=== PATIENT | female | born 1935 | race Caucasian/White ===

== ENCOUNTER 2017-10-11 11:21 | Emergency (ER) | payer OTHER, BC, MEDICARE ==
--- NOTE | 2017-10-11 11:28 | PDOC ---
History of Present Illness <Emiliano Vo - Last Filed: 10/11/17 17:35> - General History Source: Patient, Family Exam Limitations: No Limitations - History of Present Illness Initial Comments: 10/11/17 12:27 The patient is an 81 year old female with a significant PMH of HTN, hypothyroidism, and murmur who presents to the emergency department via EMS s/p loss of consciousness and fall earlier today. The patient reports brushing her teeth earlier today and suddenly feeling dizzy, after which she fell between the sink and the wall. She reports sustaining a left elbow abrasion but denies hitting her head. She reports being unconscious for a few seconds, during which time she experienced bowel incontinence and vomited. The patient notes that she ate breakfast this morning, after which she took her prescribed Meclizine. She notes that her son found her on the bathroom floor shortly after the fall, prompting their visit The patients daughter notes that the patient has had 2 or 3 previous episodes of dizziness and falling in the past few months. She has seen a Neurologist in the past for this complaint. The patient denies chest pain, shortness of breath, headache. Denies fever, chills, nausea, diarrhea and constipation. Denies dysuria, frequency, urgency and hematuria. Allergies: NKA Past surgical history: None reported. Social history: No reported cigarette, alcohol, or drug use. PCP: Dr. Moore <Juan J Javed - Last Filed: 10/11/17 17:38> - General Stated Complaint: SYNCOPE Time Seen by Provider: 10/11/17 11:27 Past History <Emiliano Vo - Last Filed: 10/11/17 17:35> <Juan J Javed - Last Filed: 10/11/17 17:38> - Past Medical History Allergies/Adverse Reactions: Allergies Allergy/AdvReac Type Severity Reaction Status Date / Time No Known Allergies Allergy Verified 10/11/17 12:13 Home Medications: Ambulatory Orders Amlodipine Besylate 10 mg PO DAILY 10/11/17 Aspirin 81 mg PO DAILY 10/11/17 Brimonidine Tartrate/Timolol [Combigan Eye Drops] 1 drop IO BID 10/11/17 Levothyroxine Sodium [Levo-T] 88 mcg PO DAILY 10/11/17 Losartan Potassium 25 mg PO DAILY 12/24/17 Meclizine HCl 12.5 mg PO DAILY PRN MDD 1 10/11/17 Pravastatin Sodium 20 mg PO DAILY 10/11/17 Travoprost [Travatan Z] 1 drop IO HS 10/11/17 Review of Systems - Review of Systems Able to Perform ROS?: Yes Comments:: 10/11/17 12:27 GENERAL/CONSTITUTIONAL: No fever or chills. No weakness. HEAD, EYES, EARS, NOSE AND THROAT: No change in vision. No ear pain or discharge. No sore throat. CARDIOVASCULAR: No chest pain or shortness of breath. RESPIRATORY: No cough, wheezing, or hemoptysis. GASTROINTESTINAL: (+) Bowel incontinence & vomiting secondary to LOC. No diarrhea or constipation. GENITOURINARY: No dysuria, frequency, or change in urination. MUSCULOSKELETAL: No joint or muscle swelling or pain. No neck or back pain. SKIN: (+) Left elbow abrasion. NEUROLOGIC: (+) Loss of consciousness. No headache or change in strength/ sensation. ENDOCRINE: No increased thirst. No abnormal weight change. HEMATOLOGIC/LYMPHATIC: No anemia, easy bleeding, or history of blood clots. ALLERGIC/IMMUNOLOGIC: No hives or skin allergy. <Juan J Javed - Last Filed: 10/11/17 17:38> *Physical Exam - Physical Exam Comments: 10/11/17 12:28 GENERAL: Awake, alert, and fully oriented, in no acute distress HEAD: No signs of trauma EYES: PERRLA, EOMI, sclera anicteric, conjunctiva clear ENT: Auricles normal inspection, hearing grossly normal, nares patent, oropharynx clear without exudates. Moist mucosa NECK: Normal ROM, supple, no lymphadenopathy, JVD, or masses LUNGS: Breath sounds equal, clear to auscultation bilaterally. No wheezes, and no crackles HEART: (+) Bradycardic. Regular rhythm, normal S1 and S2, no murmurs, rubs or gallops ABDOMEN: Soft, nontender, normoactive bowel sounds. No guarding, no rebound. No masses EXTREMITIES: (+) Left elbow abrasion. Normal range of motion, no edema. No clubbing or cyanosis. No cords, erythema, or tenderness NEUROLOGICAL: Cranial nerves II through XII grossly intact. Normal speech. SKIN: Warm, Dry, normal turgor, no rashes or lesions noted. <Juan J Javed - Last Filed: 10/11/17 17:38> Heart Score/ECG Review #1 10/11/17 12:11 Vent rate 67 bpm Normal sinus rhythm Nonspecific ST abnormality Abnormal ECG <TelloJuan J - Last Filed: 10/11/17 17:38> ED Treatment Course - LABORATORY CBC & Chemistry Diagram: 10/11/17 12:00 10/11/17 12:00 <Emiliano Vo - Last Filed: 10/11/17 17:35> - LABORATORY CBC & Chemistry Diagram: 10/11/17 12:00 10/11/17 12:00 <Juan J Javed - Last Filed: 10/11/17 17:38> *DC/Admit/Observation/Transfer - Discharge Dispostion Admit: No - Attestations Physician Attestion: 10/11/17 11:27 I, Dr. Emiliano Vo, attest that this document has been prepared under my direction and personally reviewed by me in its entirety. I further attest, that it accurately reflects all work, treatment, procedures and medical decision -making performed by me. <Emiliano Vo - Last Filed: 10/11/17 17:35> - Attestations Scribe Attestion: 10/11/17 12:28 Documentation prepared by Juan J Javed, acting as medical education specialist for Emiliano Vo DO. <Juan J Javed - Last Filed: 10/11/17 17:38> Diagnosis at time of Disposition: Syncope Qualifiers: Syncope type: vasovagal syncope Qualified Code(s): R55 - Syncope and collapse - Discharge Dispostion Disposition: HOME Condition at time of disposition: Improved - Referrals Referrals: Francisco Moore MD [Primary Care Provider] - - Patient Instructions Printed Discharge Instructions: DI for Syncope in Adults (Fainting) Additional Instructions: Mrs Linares- Pat this happened to you today. All of your tests are good. Please follow up with your doctor. Return to us if worse or new symptoms. Mariangel Churchill- Dr. Emiliano Vo
[2017-10-11] MEDS ORDERED: DIPHTH,PERTUSS(ACELL),TET 0.5 ML DISP.SYRIN IM ONE (11:38)
[2017-10-11 12:14] LABS: BASO % 0.7 % (0-2.0); EOS # 0.2 # (0-4.5); EOS % 2.2 % (0-4.5); LYMPH # 0.8 (8-40); MCH 32.9 pg (25.7-33.7); MCHC 32.9 g/dl (32.0-36.0); MEAN CELL VOLUME 99.9 fl (80-96); MEAN PLT VOLUME 8.7 fl (7.5-11.1); MONO # 0.5 # (3.8-10.2); NEUT # 5.9 # (42.8-82.8); PLATELET COUNT 201 K/MM3 (134-434); RDW 13.3 % (11.6-15.6); WHITE BLOOD COUNT 7.4 K/mm3 (4.0-10.0)
[2017-10-11 12:30] LABS: INR 0.94 (0.82-1.09); PROTHROMBIN TIME (PATIENT) 10.6 SEC (9.98-11.88)
[2017-10-11 12:46] VITALS: BMI 24.0
[2017-10-11 12:53] LABS: ALBUMIN 3.7 g/dl (3.4-5.0); ANION GAP 6 (8-16); BILIRUBIN,TOTAL 0.4 mg/dL (0.2-1.0); CALCIUM 9.1 mg/dL (8.5-10.1); CO2 29 mmol/L (21-32); GLUCOSE,RANDOM 136 mg/dL (74-106); SGOT/AST 23 U/L (15-37); SGPT/ALT 22 U/L (12-78); TOT PROT 7.2 g/dl (6.4-8.2)
[2017-10-11 12:55] LABS: ALK PHOS 72 U/L (45-117); CPK 88 IU/L (26-192); TROPONIN I < 0.02 ng/ml (0.00-0.05)
--- NOTE | 2017-10-11 16:56 | EKG ---
Test Reason : Blood Pressure : / mmHG Vent. Rate : 067 BPM Atrial Rate : 067 BPM P-R Int : 178 ms QRS Dur : 088 ms QT Int : 416 ms P-R-T Axes : 064 020 055 degrees QTc Int : 439 ms NORMAL SINUS RHYTHM NONSPECIFIC ST ABNORMALITY ABNORMAL ECG NO PREVIOUS ECGS AVAILABLE Confirmed by MIGUEL LEDEZMA MD ([id number]) on 10/11/2017 4:56:37 PM Referred By: Confirmed By:MIGUEL LEDEZMA MD
[2017-10-11 17:15] LABS: URINE APPEARANCE SLCLOUDY; URINE BILIRUBIN NEGATIVE (NEGATIVE); URINE BLOOD NEGATIVE (NEGATIVE); URINE COLOR YELLOW; URINE GLUCOSE (UA) NEGATIVE (NEGATIVE); URINE KETONE NEGATIVE (NEGATIVE); URINE NITRITE NEGATIVE (NEGATIVE); URINE PROTEIN NEGATIVE (NEGATIVE); URINE UROBILINOGEN NEGATIVE mg/dL (0.2-1.0)
[2017-10-11 17:20] LABS: URINE LEUK ESTERASE 1+ (NEGATIVE)
[2017-10-11 17:23] LABS: URINE BACTERIA RARE /hpf (NONE SEEN); URINE HYALINE CAST 2 /lpf; URINE MUCUS RARE; URINE RBC <1 /hpf (0-3); URINE WBC 6 /hpf (3-5)
[2017-10-11 18:01] VITALS: BP 147/74; PULSE 86; TEMP 98.2
[2017-10-11 20:09] LABS: URINE LEUK ESTERASE 1+ (NEGATIVE)
== END 2017-10-11 17:50 | disposition home or self-care (01) ==
LOC: JER 11:21
DX: R55 Syncope and collapse (principal); S50.312A Abrasion of left elbow, initial encounter; W19.XXXA Unspecified fall, initial encounter; Y93.89 Activity, other specified; Y92.031 Bathroom in apartment as the place of occurrence of the external cause; Y99.8 Other external cause status; I10 Essential (primary) hypertension; E03.9 Hypothyroidism, unspecified; R01.1 Cardiac murmur, unspecified
CPT/HCPCS: 36415; 70450-TC; 71010-TC; 80053; 81003; 81015; 82550; 83880; 84484; 85025; 85610; 87086; 90715; 93005; 93010; 99283-25

== ENCOUNTER 2019-03-01 09:14 | Inpatient (IN) | payer OTHER, BC ==
[2019-03-01] MEDS ORDERED: SODIUM CHLORIDE 0.9% 500 ML INFUS.BAG IV ONE (10:15)
--- NOTE | 2019-03-01 10:30 | PDOC ---
History of Present Illness - General Chief Complaint: Pain, Acute Stated Complaint: CONSTIPATION Time Seen by Provider: 03/01/19 10:07 - History of Present Illness Initial Comments: Elnei Linares is an 83yo woman with a PMH of HTN, HLD, hypothyroidism, multiple abdominal surgeries including hernia s/p repair x2 ("many years ago") and hysterectomy who presents with 3 days of constipation and nausea. She states that she generally has a bowel movement every morning; her stool is soft and she does not need to strain. Since Thursday, she has been unable to have a bowel movement at all, and she denies any flatus. She also reports significant abdominal bloating, burping, nausea, and vomiting. She has been unable to eat much due to the nausea. Ms Linares has been taking docusate and Gas-X for her symptoms without any improvement. She reports that her abdomen is much larger than normal. She also reports that there is a bulge on the left side of her abdomen that she states is due to needing to have a bowel movement. She indicates that there is always a bulge there that resolves after she has a bowel movement. She denies any change in diet or history of constipation. Past History - Past Medical History Allergies/Adverse Reactions: Allergies Allergy/AdvReac Type Severity Reaction Status Date / Time No Known Allergies Allergy Verified 03/01/19 09:17 Home Medications: Ambulatory Orders Amlodipine Besylate 10 mg PO DAILY 10/11/17 Aspirin 81 mg PO DAILY 10/11/17 Brimonidine Tartrate/Timolol [Combigan Eye Drops] 1 drop OU BID 10/11/17 Levothyroxine Sodium [Levo-T] 75 mcg PO DAILY 10/11/17 Losartan Potassium 25 mg PO DAILY 10/11/17 Pravastatin Sodium 20 mg PO DAILY 10/11/17 Travoprost [Travatan Z] 1 drop OU HS 10/11/17 Multivit-Min/Iron/Folic/Lutein [Centrum Silver Women Tablet] 1 each PO DAILY [place]-3 Fatty Acids/Fish Oil [Fish Oil 1,000 mg Capsule] 1 each PO DAILY COPD: No HTN: Yes Hypercholesterolemia: Yes - Suicide/Smoking/Psychosocial Hx Smoking History: Unknown if ever smoked Review of Systems - Review of Systems Comments:: General: No fevers, no chills, no weight or appetite change, no malaise HEENT: No changes in vision, no changes in hearing, no congestion, no sore throat CV: No chest pain, no palpitations, + LE edema Pulm: No SOB, no cough, no wheezing GI: No nausea or vomiting, no change in bowel habits, no melena : No frequency, no urgency, no dysuria Musc: No back pain, no joint swelling, no recent injury. +LLE ankle pain Skin: No rash, no lesions, no erythema Endo: No excessive thirst, no heat/cold intolerance Heme: No unusual bruising or bleeding, no swollen glands Neuro: No syncope, no numbness/tingling, no focal weakness Vasc: No claudication Psych: No recent change in mood, no SI or HI *Physical Exam - Vital Signs Last Vital Signs Temp Pulse Resp BP Pulse Ox 98.4 F 81 20 117/61 99 03/01/19 09:14 03/01/19 09:14 03/01/19 09:14 03/01/19 09:14 03/01/19 09:14 - Physical Exam Comments: General: Comfortable, no acute distress HEENT: PERRL, EOMI, MMM, voice normal, normal neck ROM, no LAD Cards: RRR, no murmur appreciated Pulm: Comfortable on room air, clear to auscultation bilaterally Abd: Soft, nondistended. Visible and palpable left periumbilical hernia w/o overlying erythema or warmth. Soft but not reducible Ext: Atraumatic. No LE edema. ROM intact. Vasc: Extremities WWP. Skin: Normal color, no rashes or lesions Neuro: A&Ox3, CN grossly intact, normal speech, motor/sensory grossly intact and symmetric Psych: Mood appropriate to situation ED Treatment Course - LABORATORY CBC & Chemistry Diagram: 03/01/19 11:00 03/01/19 11:00 - RADIOLOGY Radiology Studies Ordered: Category Date Time Status ABDOMEN & PELVIS CT WITH CONTR [CT] Stat CT Scan 03/01/19 10:13 Ordered CHEST X-RAY PORTABLE* [RAD] Stat Radiology 03/01/19 10:13 Ordered Medical Decision Making - Medical Decision Making 03/01/19 10:29 Eleni Linares is an 83yo woman with a PMH of HTN, HLD, hypothyroidism, multiple abdominal surgeries including hernia s/p repair x2 ("many years ago") and hysterectomy who presents with 3 days of constipation, obstipation, nausea/ vomiting, bloating, and visible periumbilical hernia concerning for small bowel obstruction. - Visible and palpable left periumbilical hernia that cannot be reduced on exam. - Concern for SOB given hernia, new acute onset constipation, report of obstipation, nausea and vomiting w/ PO intake - CBC, CMP, mag, phos, CXR, T&S, coags for evaluation - CT abd/pelvis with PO and IV contrast 03/01/19 13:02 - Labs reviewed. Hyponatremic to 124. No other concerning abnormalities - Working on PO contrast, plan for CT at 14:00 03/01/19 15:05 - Bedside US completed by Lazaro Li and Mona. To-and-fro movement of bowel contents w / bowel wall edema indicating SBO. Transition point could not be located. - Pt taken to CT. Unable to complete oral contrast due to nausea and vomiting - [facility] paged for evaluation 03/01/19 16:03 - CT completed, reviewed in ED. Dilated bowel, no clear transition point. Umbilical hernia containing bowel noted. Radiology read pending - Plan to place NGT when returned to ED from radiology - 2nd call to surgery 03/01/19 16:55 - Spoke to Dr Lomeli. Agrees with plan for NGT, will come to evaluate. Recommends checking lactate - Attempted to place NGT. Not well tolerated. Will give 2mg versed for sedation prior to additional attempt 03/01/19 17:20 - Radiology report available for CT. Confirms SBO secondary to umbilical hernia. 03/01/19 17:55 - 2nd attempt to place NGT. Tube in place, return of gastric contents. Pt immediately removed NGT prior to the tube being taped in place. She states that it is "too uncomfortable' and that she "can't stand it." She is currently refusing replacement of NGT despite lengthy discussion regarding reasons for bowel decompression and relief of nausea/vomiting. Lazaro Mccarthy and Yani updated. - Seen by Dr Mccarthy. Will admit. To be seen by Dr Lomeli this evening. Discussed with Dr Anderson. Yaritza Godoy PGY1 *DC/Admit/Observation/Transfer Diagnosis at time of Disposition: Small bowel obstruction, Periumbilical hernia - Discharge Dispostion Decision to Admit order: Yes - Referrals Referrals: Francisco Moore MD [Primary Care Provider] - - Patient Instructions - Post Discharge Activity
--- NOTE | 2019-03-01 11:06 | PDOC ---
Documentation entered by Viridiana Garcia SCRIBE, acting as scribe for Konrad Anderson MD. Konrad Anderson MD: This documentation has been prepared by the Radha miranda Victoria, SCRIBE, under my direction and personally reviewed by me in its entirety. I confirm that the documentation accurately reflects all work, treatment, procedures, and medical decision making performed by me. Attending Attestation - Resident Resident Name: WaltYaritza - ED Attending Attestation I have performed the following: I have examined & evaluated the patient, The case was reviewed & discussed with the resident, I agree w/resident's findings & plan, Exceptions are as noted - HPI HPI: 03/01/19 10:18 The patient is an 83 year old female with past medical history of hypertension , hyperlipidemia, hypothyroidism, s/p hysterectomy, s/p multiple hernia repairs who presents to the ED with four day history of constipation with associated abdominal bloating and nausea which has not been relieved by Colace. She reports she is able to pass gas, but is concerned because she normally has daily bowel movements. She reports poor solid food intake as well. Denies any vomiting, melena or hematochezia. Denies any fevers or chills. - Physicial Exam PE: 03/01/19 11:01 GENERAL: The patient is awake, alert, and fully oriented, in no acute distress. HEAD: Normal with no signs of trauma. LUNGS: Breath sounds equal, clear to auscultation bilaterally. No wheeze/ crackles. HEART: Regular rate and rhythm, normal S1 and S2 without murmur or rub. ABDOMEN: Visible periumbilical hernia on the left side which is only partially reducible with discomfort, tender non-reducible area of the hernia in supraumbilical area, normal to increased bowel sounds. No guarding or rebound. No hepatosplenomegaly. EXTREMITIES: Normal range of motion, no edema. No clubbing or cyanosis. No cords, erythema, or tenderness. NEUROLOGICAL: Cranial nerves II through XII grossly intact. Normal speech SKIN: Warm, Dry, normal turgor, no rashes or lesions noted. - Medical Decision Making 03/01/19 10:55 83y/o F h/o abdominal hernia with presentation concerning for obstructing abdominal/periumbilical hernia, HD stable and otherwise well appearing. labs, ua ctap iv fluids reassess
[2019-03-01 11:11] LABS: BASO % 0.3 % (0-2.0); EOS % 0.1 % (0-4.5); HEMATOCRIT 34.4 % (32.4-45.2); HEMOGLOBIN 11.7 GM/dL (10.7-15.3); LYMPH % 8.6 % (8-40); MCH 33.6 pg (25.7-33.7); MCHC 33.9 g/dl (32.0-36.0); MEAN CELL VOLUME 99.1 fl (80-96); MEAN PLT VOLUME 8.3 fl (7.5-11.1); PLATELET COUNT 252 K/MM3 (134-434); RBC 3.47 M/mm3 (3.60-5.2); RDW 12.4 % (11.6-15.6); WHITE BLOOD COUNT 7.8 K/mm3 (4.0-10.0)
[2019-03-01 11:26] LABS: INR 0.93 (0.83-1.09)
[2019-03-01 11:29] LABS: ACTIVATED PTT 28.7 SECONDS (25.2-36.5)
[2019-03-01 11:44] LABS: ALBUMIN 3.7 g/dl (3.4-5.0); CALCIUM 9.4 mg/dL (8.5-10.1); MAGNESIUM 2.3 mg/dL (1.8-2.4); PHOSPHOROUS 4.1 mg/dL (2.5-4.9); POTASSIUM 4.1 mmol/L (3.5-5.1); TOT PROT 6.9 g/dl (6.4-8.2)
[2019-03-01 14:05] LABS: EPI CELLS 1.6 /HPF (0-5/HPF); HYALINE CASTS 7 /lpf (0-8); PH,URINE 6.5 (5.0-8.0); URINE APPEARANCE CLEAR; URINE BACTERIA 8.1 /hpf (NEGATIVE); URINE BILIRUBIN NEGATIVE (NEGATIVE); URINE COLOR YELLOW; URINE GLUCOSE (UA) NEGATIVE (NEGATIVE); URINE KETONE TRACE (NEGATIVE); URINE LEUK ESTERASE 3+ (NEGATIVE); URINE NITRITE NEGATIVE (NEGATIVE); URINE PROTEIN NEGATIVE (NEGATIVE); URINE RBC 1 /hpf (0-4); URINE UROBILINOGEN 0.2 mg/dL (0.2-1.0); URINE WBC 18 /hpf (0-5)
[2019-03-01] MEDS ORDERED: MIDAZOLAM HCL 2 MG/2 ML SINGLE DOSE VIAL IVPUSH ONE (16:44)
[2019-03-01] MEDS ORDERED: MIDAZOLAM HCL 2 MG/2 ML SINGLE DOSE VIAL ONE (16:51)
--- NOTE | 2019-03-01 17:35 | CONSULT ---
Consult Consult Specialty:: General Surgery Reason for Consultation:: recurrent incarcerated incisional hernia - History of Present Illness Chief Complaint: abdominal pain and vomiting History of Present Illness: 83 yo female PMH HTN, HLD, hypothyroidism, ?heart murmur, Abdominal hernia repair x 2 (?ventral hernia), last 20 years ago, comes with constipation for last 3 days. Abdominal discomfort, nausea, and few episodes of non bloody vomitus with poor oral intake. Denies any fevers, chills, reports last abdominal surgery more than 20 years ago. we were asked to assess - History Source History Provided By: Patient, Medical Record Limitations to Obtaining History: No Limitations - Smoking History Smoking history: Unknown if ever smoked Home Medications - Allergies Allergies/Adverse Reactions: Allergies Allergy/AdvReac Type Severity Reaction Status Date / Time No Known Allergies Allergy Verified 03/01/19 09:17 - Home Medications Home Medications: Ambulatory Orders Amlodipine Besylate 10 mg PO DAILY 10/11/17 Aspirin 81 mg PO DAILY 10/11/17 Brimonidine Tartrate/Timolol [Combigan Eye Drops] 1 drop OU BID 10/11/17 Levothyroxine Sodium [Levo-T] 75 mcg PO DAILY 10/11/17 Losartan Potassium 25 mg PO DAILY 10/11/17 Pravastatin Sodium 20 mg PO DAILY 10/11/17 Travoprost [Travatan Z] 1 drop OU HS 10/11/17 Multivit-Min/Iron/Folic/Lutein [Centrum Silver Women Tablet] 1 each PO DAILY [place]-3 Fatty Acids/Fish Oil [Fish Oil 1,000 mg Capsule] 1 each PO DAILY Review of Systems - Review of Systems Constitutional: denies: Chills, Fever Eyes: denies: Blind Spots, Blurred Vision HENT: denies: Difficult Swallowing, Throat Pain Neck: denies: Pain on Movement, Tenderness Cardiovascular: denies: Chest Pain, Palpitations Respiratory: denies: Cough, SOB Gastrointestinal: reports: Abdominal Pain, Constipation. denies: Bloating, Nausea Genitourinary: denies: Burning, Discharge, Dysuria Breasts: reports: No Symptoms Reported. denies: Breast Implants, Pain Musculoskeletal: denies: Extremity Pain, Muscle Pain, Muscle Cramps Integumentary: denies: Eczema, Erythema Neurological: denies: Seizure, Syncope Endocrine: denies: Unexplained Weight Gain, Unexplained Weight Loss Hematology/Lymphatic: denies: Easily Bruised, Excessive Bleeding Psychiatric: denies: Anxiety, Depression Physical Exam Vital Signs: Vital Signs Temperature 98.4 F 03/01/19 09:14 Pulse Rate 81 03/01/19 09:14 Respiratory Rate 20 03/01/19 09:14 Blood Pressure 117/61 03/01/19 09:14 O2 Sat by Pulse Oximetry (%) 99 03/01/19 09:14 Vital Signs Period Temp Pulse Resp BP Sys/Dong Pulse Ox Last 24 Hr 98.4 F-98.9 F 72-81 18-20 117-146/56-71 95-99 Intake & Output 03/01/19 03/01/19 03/01/19 07:59 15:59 23:59 Weight 118 lb 115 lb Other: Voiding Method Toilet Height 5 ft 4 in 5 ft 4 in Body Mass Index (BMI) 20.2 19.7 Weight Measurement Method Built in [facility] Constitutional: Yes: Well Nourished, No Distress, Calm, Thin Eyes: Yes: Conjunctiva Clear, EOM Intact HENT: Yes: Atraumatic, Normocephalic Neck: Yes: Supple, Trachea Midline Cardiovascular: Yes: Regular Rate and Rhythm, S1, S2 Respiratory: Yes: Regular, CTA Bilaterally Gastrointestinal: Yes: Normal Bowel Sounds, Soft, Hernia (supraumbilical position [id number]), Tenderness (minimally tender). No: Tenderness, Epigastrium, Tenderness, Rebound ...Rectal Exam: Yes: Deferred Renal/: No: CVA Tenderness - Left, CVA Tenderness - Right Breast(s): No: Breast Implants, Dimpling, Discharge from Nipple Musculoskeletal: No: Muscle Pain, Muscle Weakness Extremities: No: Cool, Cyanosis Edema: No Peripheral Pulses WNL: Yes Integumentary: No: Jaundice, Laceration Wound/Incision: Yes: Clean/Dry, Well Approximated Neurological: Yes: Alert, Oriented Psychiatric: Yes: Alert, Oriented Labs: CBC, BMP 03/01/19 11:00 03/01/19 11:00 Imaging - Results Cat Scan: Report Reviewed, Image Reviewed (previous umbilical hernia repair, incarcerated loop of small intestines) Problem List - Problems (1) Incisional hernia, incarcerated Assessment/Plan: 83yo female with incarcerated incisional pericumbilcal hernia with SBO NPo and IVF hydration NGT decompression IV anticbiotics Adequate analgesia Discussed with patient risks, benefits and alternatives of incisonal hernia repair with mesh, including but not limited to bleeding, infection, injury to adjacent structures, leak or injury, intraabdominal abscess, incisional hernia, need for further procedures, ; alternatives include antibiotics, delayed or no surgery - risks of this include failure of nonoperative therapy, perforation, sepsis, recurrence, . Patient desires to proceed with operation - will take to OR for above. Informed consent signed for same. Thank you for the opportunity to participate in the care of this patient. Code(s): K43.0 - INCISIONAL HERNIA WITH OBSTRUCTION, WITHOUT GANGRENE (2) Small bowel obstruction Code(s): K56.609 - UNSP INTESTNL OBST, UNSP TO PARTIAL VERSUS COMPLETE OBST (3) Syncope Code(s): R55 - SYNCOPE AND COLLAPSE Qualifiers: Syncope type: vasovagal syncope Qualified Code(s): R55 - Syncope and collapse (4) HTN (hypertension) Code(s): I10 - ESSENTIAL (PRIMARY) HYPERTENSION
--- NOTE | 2019-03-01 17:36 | HP ---
CHIEF COMPLAINT: constipation and nausea, abdominal bulge PCP: Dr. Moore HISTORY OF PRESENT ILLNESS: 83 yof with PMhx of HTN, HLD, hypothyroidism, ?heart murmur, Abdominal hernia repair x 2 (?ventral hernia), last 20 years ago, comes with constipation for last 3 days. Abdominal discomfort, nausea, and few episodes of non bloody vomitus with poor oral intake. Denies any fevers, chills, reports last abdominal surgery more than 20 years ago. Denies any prior cardiac history, no GA, CHF. No chest pain currently, recent swelling/weight gain or exertional dyspnea. Has been ambulatory and independent, lives with son with no c/o exertional chest pain and dyspnea. Last reported 2Decho with Dr. Lui about a year, reportedly with no concerns. ER course was notable for: (1) CT A/P showing SBO with bowel loops in ventral hernia Recent Travel: denies PAST MEDICAL HISTORY: HTN, HLD, hypothyroidism, ?heart murmur, Abdominal hernia repair x 2 (?ventral hernia), last 20 years ago PAST SURGICAL HISTORY: Ventral hernia repair, second abdominal surgery, ?SBO, HTN, HLD, hypothyroidism, ?Heart murmur, Social History: Smoking: Denies Alcohol: Denies Drugs: Denies Lives with son, independent in ADLs Family History: Allergies No Known Allergies Allergy (Verified 03/01/19 09:17) HOME MEDICATIONS: Home Medications Medication Instructions Recorded Amlodipine Besylate 10 mg PO DAILY 10/11/17 Aspirin 81 mg PO DAILY 10/11/17 Brimonidine Tartrate/Timolol 1 drop OU BID 10/11/17 [Combigan Eye Drops] Levothyroxine Sodium [Levo-T] 75 mcg PO DAILY 10/11/17 Losartan Potassium 25 mg PO DAILY 10/11/17 Pravastatin Sodium 20 mg PO DAILY 10/11/17 Travoprost [Travatan Z] 1 drop OU HS 10/11/17 Multivit-Min/Iron/Folic/Lutein 1 each PO DAILY 03/01/19 [Centrum Silver Women Tablet] Blakely-3 Fatty Acids/Fish Oil [Fish 1 each PO DAILY 03/01/19 Oil 1,000 mg Capsule] REVIEW OF SYSTEMS 12 point ROS done, per HPI PHYSICAL EXAMINATION Vital Signs - 24 hr 03/01/19 09:14 Temperature 98.4 F Pulse Rate 81 Respiratory 20 Rate Blood Pressure 117/61 O2 Sat by Pulse 99 Oximetry (%) Intake & Output 02/26/19 02/27/19 02/28/19 03/01/19 23:59 23:59 23:59 23:59 Weight 118 lb GENERAL: Awake, alert, and fully oriented, in no acute distress. HEAD: Normal with no signs of trauma. EYES: Pupils equal, round and reactive to light, extraocular movements intact, sclera anicteric, conjunctiva clear. No lid lag. EARS, NOSE, THROAT: Ears normal, nares patent, oropharynx clear without exudates. Dry skin and mucous membrane NECK:soft, supple, no JVD LUNGS: Breath sounds equal, clear to auscultation bilaterally. No wheezes, and no crackles. No accessory muscle use. HEART: Regular rate and rhythm, normal S1 and S2 ABDOMEN: Soft, umbilical bulge, with mild tenderness, unable to reduce, hyperactive bowel sounds, vague umbilical/rashi-umbilical tenderness MUSCULOSKELETAL: Normal range of motion at all joints. No bony deformities or tenderness. No CVA tenderness. UPPER EXTREMITIES: 2+ pulses, warm, well-perfused. No cyanosis. No clubbing. No peripheral edema. LOWER EXTREMITIES: 2+ pulses, warm, well-perfused. No calf tenderness. No peripheral edema. NEUROLOGICAL: AAOx3, power 5/5 sensation intact to light touch, moves all extremities freely, Cranial nerves II-XII intact. Normal speech. Gait not observed PSYCHIATRIC: Cooperative. Good eye contact. Appropriate mood and affect. SKIN: Warm, dry, normal turgor, no rashes or lesions noted, normal capillary refill. Laboratory Results - last 24 hr 03/01/19 03/01/19 03/01/19 11:00 11:00 11:00 WBC 7.8 RBC 3.47 L Hgb 11.7 Hct 34.4 MCV 99.1 H MCH 33.6 MCHC 33.9 RDW 12.4 Plt Count 252 D MPV 8.3 Absolute Neuts (auto) 6.4 Neutrophils % 82.0 Lymphocytes % 8.6 D Monocytes % 9.0 Eosinophils % 0.1 D Basophils % 0.3 Nucleated RBC % 0 PT with INR 11.00 INR 0.93 PTT (Actin FS) 28.7 Sodium 126 L Potassium 4.1 Chloride 90 L Carbon Dioxide 29 Anion Gap 6 L BUN 16 Creatinine 1.0 Est GFR (CKD-EPI)AfAm 60.76 Est GFR (CKD-EPI)NonAf 52.42 Random Glucose 96 Calcium 9.4 Phosphorus 4.1 Magnesium 2.3 Total Bilirubin 1.0 AST 29 ALT 17 Alkaline Phosphatase 59 Total Protein 6.9 Albumin 3.7 Urine Color Urine Appearance Urine pH Ur Specific [place] Urine Protein Urine Glucose (UA) Urine Ketones Urine Blood Urine Nitrite Urine Bilirubin Urine Urobilinogen Ur Leukocyte Esterase Urine WBC (Auto) Urine RBC (Auto) Urine Casts (Auto) U Epithel Cells (Auto) Urine Bacteria (Auto) Blood Type Antibody Screen 03/01/19 03/01/19 11:00 13:50 WBC RBC Hgb Hct MCV MCH MCHC RDW Plt Count MPV Absolute Neuts (auto) Neutrophils % Lymphocytes % Monocytes % Eosinophils % Basophils % Nucleated RBC % PT with INR INR PTT (Actin FS) Sodium Potassium Chloride Carbon Dioxide Anion Gap BUN Creatinine Est GFR (CKD-EPI)AfAm Est GFR (CKD-EPI)NonAf Random Glucose Calcium Phosphorus Magnesium Total Bilirubin AST ALT Alkaline Phosphatase Total Protein Albumin Urine Color Yellow Urine Appearance Clear Urine pH 6.5 Ur Specific [place] 1.010 Urine Protein Negative Urine Glucose (UA) Negative Urine Ketones Trace H Urine Blood Negative Urine Nitrite Negative Urine Bilirubin Negative Urine Urobilinogen 0.2 Ur Leukocyte Esterase 3+ H Urine WBC (Auto) 18 Urine RBC (Auto) 1 Urine Casts (Auto) 7 U Epithel Cells (Auto) 1.6 Urine Bacteria (Auto) 8.1 Blood Type Cancelled Antibody Screen Cancelled CT A/P results reviewed ASSESSMENT/PLAN: 83 yof with PMHx of HTN, HLD, hypothyroidism, ?heart murmur, abdominal surgery x 2 admitted with SBO from suspected strangulated umbilical hernia -Small bowel obstruction, from suspected strangulated umbilical hernia -HTN -HLD -Hypothyroidism -?Heart murmur -Prior ventral hernia repair, ?SBO Plan: NT tube, IV hydration, strict NPO. Check lactic acid. Dr. Lomeli consulted, case discussed in detail with him, He will be coming in to see patient soon. Anticipate emergent operative intervention. Routine EKG. Arambula. No chest pain, clinical concerns of CHF or GA. Levothyroxine IV Hold statin till able to resume PO Hold anti-hypertensives for now. DVTPPX start post op Dispo pending clinical improvement. Plan discussed patient in detail, all questions answered Care co-ordinated with ED and surgery Dr. Lomeli Total admit time 65 min. Visit type - Emergency Visit Emergency Visit: Yes Care time: The patient presented to the Emergency Department on the above date and was hospitalized for further evaluation of their emergent condition. - New Patient This patient is new to me today: Yes Date on this admission: 03/01/19 - Critical Care Critical Care patient: No
[2019-03-01] MEDS ORDERED: DEXTROSE 5%-NORMAL SALINE 1,000 ML IV SCH (18:00)
[2019-03-01 20:13] VITALS: BMI 19.7
[2019-03-02 06:47] LABS: BASO % 0.4 % (0-2.0); EOS % 0.1 % (0-4.5); HEMATOCRIT 28.9 % (32.4-45.2); HEMOGLOBIN 10.1 GM/dL (10.7-15.3); LYMPH % 9.4 % (8-40); MCH 34.2 pg (25.7-33.7); MCHC 34.9 g/dl (32.0-36.0); MEAN CELL VOLUME 97.9 fl (80-96); MEAN PLT VOLUME 7.8 fl (7.5-11.1); MONO % 8.7 % (3.8-10.2); NEUT % 81.4 % (42.8-82.8); PLATELET COUNT 215 K/MM3 (134-434); RBC 2.96 M/mm3 (3.60-5.2); RDW 12.1 % (11.6-15.6); WHITE BLOOD COUNT 6.7 K/mm3 (4.0-10.0)
[2019-03-02 07:28] LABS: BILIRUBIN,TOTAL 0.8 mg/dL (0.2-1); CALCIUM 8.7 mg/dL (8.5-10.1); CREATININE 0.7 mg/dL (0.55-1.3); MAGNESIUM 2.2 mg/dL (1.8-2.4); PHOSPHOROUS 3.6 mg/dL (2.5-4.9); POTASSIUM 3.2 mmol/L (3.5-5.1); TOT PROT 5.6 g/dl (6.4-8.2)
[2019-03-02] MEDS ORDERED: ONDANSETRON 4 MG/2 ML VIAL IVPUSH PRN (09:30)
[2019-03-02] MEDS ORDERED: LACTATED RINGERS SOLUTION 1,000 ML IV SCH (09:30)
[2019-03-02] MEDS ORDERED: BUPIVACAINE HCL/PF 0.5% (5MG/ML) 10 ML VIAL ONE (09:41)
[2019-03-02] MEDS ORDERED: VECURONIUM BROMIDE 10 MG VIAL ONE (09:45)
[2019-03-02] MEDS ORDERED: LIDOCAINE HCL/PF 2% SDV 5ML VIAL ONE (09:45)
[2019-03-02] MEDS ORDERED: PROPOFOL 20 ML ONE (09:45)
[2019-03-02] MEDS ORDERED: LEVOTHYROXINE SODIUM 100 MCG VIAL IVPUSH SCH (10:00)
[2019-03-02] MEDS ORDERED: ceFAZolin SODIUM 1 GM VIAL IVPB ONE (10:08)
[2019-03-02] MEDS ORDERED: ceFAZolin SODIUM 1 GM VIAL ONE (10:19)
[2019-03-02] MEDS ORDERED: DEXAMETHASONE SOD PHOSPHATE 4 MG/1 ML VIAL ONE (10:19)
[2019-03-02] MEDS ORDERED: NEOSTIGMINE METHYLSULFATE 0.5 MG/ML - 10 ML MDV ONE (10:24)
[2019-03-02] MEDS ORDERED: GLYCOPYRROLATE 0.2 MG/1 ML VIAL ONE (10:24)
[2019-03-02] MEDS ORDERED: BUPIVACAINE HCL/PF 0.5% (5MG/ML) 10 ML VIAL IJ ONE (10:37)
--- NOTE | 2019-03-02 10:50 | EKG ---
Test Reason : Blood Pressure : / mmHG Vent. Rate : 071 BPM Atrial Rate : 071 BPM P-R Int : 168 ms QRS Dur : 090 ms QT Int : 408 ms P-R-T Axes : 052 010 045 degrees QTc Int : 443 ms NORMAL SINUS RHYTHM ABNORMAL ECG WHEN COMPARED WITH ECG OF 11-OCT-2017 12:04, NO SIGNIFICANT CHANGE WAS FOUND Confirmed by ANUEL CASTELLON MD ([id number]) on 03/02/2019 10:49:25 AM Referred By: Confirmed By:ANUEL CASTELLON MD
--- NOTE | 2019-03-02 10:52 | OP ---
Operative Note - Note: Operative Date: 03/02/19 Pre-Operative Diagnosis: Recurrent Incisional Hernia Operation: Open repair recurrent incisional hernia with mesh Post-Operative Diagnosis: Same as Pre-op Surgeon: Domingo Lomeli Production Worker: Tony Cavazos Anesthesiologist/WORLD HISTORY TEACHER: Marian Negro Anesthesia: General Specimens Removed: Hernia sac Estimated Blood Loss (mls): 5 Fluid Volume Replaced (mls): 400 Operative Report Dictated: Yes
--- NOTE | 2019-03-02 10:53 | SURG ---
Surgery Slide Machine Tender Note Slide Machine Tender: Tony Cavazos PA-C Date of Service: 03/02/19 Diagnosis: Recurrent Incisional Hernia Procedure: Open repair recurrent incisional hernia with mesh I was present for the entirety of the operative procedure. For further detail, please refer to operative report. Visit type - Case Type Case Type: ED Admission - New patient This patient is new to me today: Yes Date on this admission: 03/02/19
[2019-03-02] MEDS ORDERED: PROMETHAZINE HCL 25 MG/1 ML VIAL ONE (11:18)
[2019-03-02] MEDS ORDERED: PROMETHAZINE HCL 25 MG/1 ML VIAL IVPB ONE (11:30)
[2019-03-02] MEDS ORDERED: ACETAMINOPHEN 1000 MG/100 ML VIAL (NON FORMULARY) IVPB PRN ×2 (12:00)
[2019-03-02] MEDS: DEXTROSE 5%-NORMAL SALINE 1,000 ML IV SCH ×2 (13:30→21:36)
--- NOTE | 2019-03-02 18:19 | PN ---
Progress Note, Physician Chief Complaint: Ms Linares says she is feeling fine. Denies cp, sob, n/v. - Current Medication List Current Medications: Active Medications Acetaminophen (Ofirmev Injection -) 1,000 mg IVPB ONCE PRN PRN Reason: MODERATE PAIN Fentanyl (Sublimaze Injection -) 50 mcg IVPUSH [id number] PRN PRN Reason: PAIN-PACU ORDER X 4 DOSES ONLY Dextrose/Sodium Chloride (D5-Ns -) 1,000 mls @ 100 mls/hr IV ASDIR ALANA Last Admin: 03/02/19 13:30 Dose: 0 mls Lactated Ringer's (Lactated Ringers Solution) 1,000 mls @ 75 mls/hr IV ASDIR ALANA Levothyroxine Sodium (Synthroid Injection -) 37.5 mcg IVPUSH DAILY ALANA Ondansetron HCl (Zofran Injection) 4 mg IVPUSH Q6H PRN PRN Reason: NAUSEA AND/OR VOMITING - Objective Vital Signs: Vital Signs Temperature 37.0 C 03/02/19 17:15 Pulse Rate 76 03/02/19 17:15 Respiratory Rate 20 03/02/19 17:15 Blood Pressure 138/77 03/02/19 17:15 O2 Sat by Pulse Oximetry (%) 98 03/02/19 17:15 Constitutional: Yes: Well Nourished, No Distress, Calm Cardiovascular: Yes: Regular Rate and Rhythm. No: Gallop, Murmur, Rub Respiratory: Yes: Regular, CTA Bilaterally. No: Rales, Rhonchi, Wheezes Gastrointestinal: Yes: Distention, Hypoactive Bowel Sounds. No: Normal Bowel Sounds Extremities: Yes: WNL Edema: No Labs: CBC, BMP 03/02/19 06:00 03/02/19 06:00 INR, PTT INR 0.93 (0.83-1.09) 03/01/19 11:00 Problem List - Problems (1) Incisional hernia, incarcerated Assessment/Plan: -s/p repair -surgery following Code(s): K43.0 - INCISIONAL HERNIA WITH OBSTRUCTION, WITHOUT GANGRENE (2) Small bowel obstruction Assessment/Plan: -npo -ngt in place Code(s): K56.609 - UNSP INTESTNL OBST, UNSP TO PARTIAL VERSUS COMPLETE OBST (3) Hypokalemia Assessment/Plan: -recheck in am -replace as needed Code(s): E87.6 - HYPOKALEMIA (4) Hypothyroid Assessment/Plan: -continue IV synthroid Code(s): E03.9 - HYPOTHYROIDISM, UNSPECIFIED (5) HTN (hypertension) Assessment/Plan: -elevated but does not need emergent treatment -restart medications when safe from surgical standpoint Code(s): I10 - ESSENTIAL (PRIMARY) HYPERTENSION (6) HLD (hyperlipidemia) Assessment/Plan: -restart statin on discharge Code(s): E78.5 - HYPERLIPIDEMIA, UNSPECIFIED
[2019-03-02] MEDS: LACTATED RINGERS SOLUTION 1,000 ML IV SCH (19:26)
[2019-03-02] MEDS: ONDANSETRON 4 MG/2 ML VIAL IVPUSH PRN (22:49)
[2019-03-03] MEDS: ONDANSETRON 4 MG/2 ML VIAL IVPUSH PRN (07:35)
[2019-03-03 08:01] LABS: BASO % 0.2 % (0-2.0); EOS % 0.2 % (0-4.5); HEMATOCRIT 31.5 % (32.4-45.2); HEMOGLOBIN 10.8 GM/dL (10.7-15.3); LYMPH % 6.1 % (8-40); MCH 34.2 pg (25.7-33.7); MCHC 34.4 g/dl (32.0-36.0); MEAN CELL VOLUME 99.3 fl (80-96); MEAN PLT VOLUME 8.3 fl (7.5-11.1); MONO % 10.5 % (3.8-10.2); PLATELET COUNT 200 K/MM3 (134-434); RBC 3.17 M/mm3 (3.60-5.2); RDW 12.5 % (11.6-15.6); WHITE BLOOD COUNT 8.2 K/mm3 (4.0-10.0)
[2019-03-03 08:57] LABS: CALCIUM 8.5 mg/dL (8.5-10.1); CREATININE 0.7 mg/dL (0.55-1.3); PHOSPHOROUS 2.2 mg/dL (2.5-4.9); POTASSIUM 3.3 mmol/L (3.5-5.1)
[2019-03-03] MEDS ORDERED: PT OWN MED DRAWER 7, Y5N ONE (09:43)
[2019-03-03] MEDS: DEXTROSE 5%-NORMAL SALINE 1,000 ML IV SCH ×3 (10:30→19:45)
[2019-03-03] MEDS: LEVOTHYROXINE SODIUM 100 MCG VIAL IVPUSH SCH (10:30)
--- NOTE | 2019-03-03 10:33 | PN ---
Progress Note, Physician Chief Complaint: abdominal pain at hernia site History of Present Illness: 83 yo female PMH HTN, HLD, hypothyroidism, ?heart murmur, Abdominal hernia repair x 2 (?ventral hernia), last 20 years ago, comes with constipation for last 3 days. stable postoperatively, NGT is in place and functioning - Current Medication List Current Medications: Active Medications Acetaminophen (Ofirmev Injection -) 1,000 mg IVPB ONCE PRN PRN Reason: MODERATE PAIN Last Admin: 03/02/19 22:45 Dose: 1,000 mg Fentanyl (Sublimaze Injection -) 50 mcg IVPUSH [id number] PRN PRN Reason: PAIN-PACU ORDER X 4 DOSES ONLY Dextrose/Sodium Chloride (D5-Ns -) 1,000 mls @ 100 mls/hr IV ASDIR ALANA Last Admin: 03/02/19 21:36 Dose: 100 mls/hr Lactated Ringer's (Lactated Ringers Solution) 1,000 mls @ 75 mls/hr IV ASDIR ALANA Last Admin: 03/02/19 19:26 Dose: Not Given Levothyroxine Sodium (Synthroid Injection -) 37.5 mcg IVPUSH DAILY ALANA - Objective Vital Signs: Vital Signs Temperature 98.5 F 03/03/19 06:00 Pulse Rate 70 03/03/19 06:00 Respiratory Rate 20 03/03/19 06:00 Blood Pressure 134/62 03/03/19 06:00 O2 Sat by Pulse Oximetry (%) 98 03/02/19 21:00 Vital Signs Period Temp Pulse Resp BP Sys/Dong Pulse Ox Last 24 Hr 97.9 F-98.8 F 62-79 17-24 133-175/45-86 98-100 Intake & Output 03/02/19 03/03/19 03/03/19 23:59 07:59 15:59 Intake Total 1200 1200 Output Total 200 Balance 1000 1200 Intake: IV 1200 1200 D5-Ns - 1,000 ml @ 100 1200 1200 mls/hr IV ASDIR ALANA Rx#: [id number] Output: Gastric Drainage 0 Urine 200 Void 200 Other: Voiding Method Bedpan # Unmeasured Voids Void 2 2 Bowel Movement No Constitutional: Yes: Well Nourished, No Distress, Calm, Thin Eyes: Yes: Conjunctiva Clear, EOM Intact HENT: Yes: Atraumatic, Normocephalic Neck: Yes: Supple, Trachea Midline Cardiovascular: Yes: Regular Rate and Rhythm, S1, S2 Respiratory: Yes: Regular, CTA Bilaterally Gastrointestinal: Yes: Normal Bowel Sounds, Soft. No: Tenderness, Tenderness, Epigastrium ...Rectal Exam: Yes: Deferred Genitourinary: No: CVA Tenderness - Left, CVA Tenderness - Right Breast(s): No: Discharge from Nipple, Mass Musculoskeletal: No: Muscle Pain, Muscle Weakness Extremities: No: Cool, Cyanosis Edema: No Peripheral Pulses WNL: Yes Peripheral Pulses: Left Radial: 2+, Right Radial: 2+, Left Doralis Pedis: 2+, Right Dorsalis Pedis: 2+, Left Femoral: 2+, Right Femoral: 2+ Wound/Incision: Yes: Clean/Dry, Well Approximated, Dressing Dry and Intact Neurological: Yes: Alert, Oriented Psychiatric: Yes: Alert, Oriented Labs: CBC, BMP 03/03/19 07:00 03/03/19 07:00 INR, PTT INR 0.93 (0.83-1.09) 03/01/19 11:00 Problem List - Problems (1) Incisional hernia, incarcerated Assessment/Plan: 83yo female with incarcerated incisional pericumbilcal hernia with SBO POD#1 s/ p open repair of perumbilical incisional hernia repair. resolveing SBO on xray now shows colonic air and NGT is minimal output. NPo and IVF hydration NGT decompression until tormorrow morning then start clear liquids and advance as tolerated antiematic therapy IV anticbiotics Adequate analgesia encourage IS OOb and ambulate discharge will be at the discrestion of the primay team will follow Code(s): K43.0 - INCISIONAL HERNIA WITH OBSTRUCTION, WITHOUT GANGRENE (2) Small bowel obstruction Code(s): K56.609 - UNSP INTESTNL OBST, UNSP TO PARTIAL VERSUS COMPLETE OBST (3) Syncope Code(s): R55 - SYNCOPE AND COLLAPSE Qualifiers: Syncope type: vasovagal syncope Qualified Code(s): R55 - Syncope and collapse (4) HTN (hypertension) Code(s): I10 - ESSENTIAL (PRIMARY) HYPERTENSION
--- NOTE | 2019-03-03 16:50 | PN ---
Progress Note, Physician Chief Complaint: Ms Linares complains that the NGT irritates her throat. Denies cp, sob, n/v. - Current Medication List Current Medications: Active Medications Acetaminophen (Ofirmev Injection -) 1,000 mg IVPB ONCE PRN PRN Reason: MODERATE PAIN Last Admin: 03/02/19 22:45 Dose: 1,000 mg Fentanyl (Sublimaze Injection -) 50 mcg IVPUSH [id number] PRN PRN Reason: PAIN-PACU ORDER X 4 DOSES ONLY Dextrose/Sodium Chloride (D5-1/2ns+40 Meq Kcl -) 40 meq in 1,000 mls @ 75 mls/ hr IV ASDIR ALANA Levothyroxine Sodium (Synthroid Injection -) 37.5 mcg IVPUSH DAILY ALANA Last Admin: 03/03/19 10:30 Dose: 37.5 mcg - Objective Vital Signs: Vital Signs Temperature 37.2 C 03/03/19 10:00 Pulse Rate 71 03/03/19 10:00 Respiratory Rate 20 03/03/19 10:00 Blood Pressure 143/56 L 03/03/19 10:00 O2 Sat by Pulse Oximetry (%) 93 L 03/03/19 09:00 Constitutional: Yes: Well Nourished, No Distress, Calm HENT: Yes: Other (NGT in place) Cardiovascular: Yes: Regular Rate and Rhythm. No: Gallop, Murmur, Rub Respiratory: Yes: Regular, CTA Bilaterally. No: Rales, Rhonchi, Wheezes Gastrointestinal: Yes: Normal Bowel Sounds, Soft, Distention. No: Tenderness Extremities: Yes: WNL Edema: No Labs: CBC, BMP 03/03/19 07:00 03/03/19 07:00 INR, PTT INR 0.93 (0.83-1.09) 03/01/19 11:00 Problem List - Problems (1) Incisional hernia, incarcerated Code(s): K43.0 - INCISIONAL HERNIA WITH OBSTRUCTION, WITHOUT GANGRENE (2) Small bowel obstruction Code(s): K56.609 - UNSP INTESTNL OBST, UNSP TO PARTIAL VERSUS COMPLETE OBST (3) Hypokalemia Code(s): E87.6 - HYPOKALEMIA (4) Hypothyroid Code(s): E03.9 - HYPOTHYROIDISM, UNSPECIFIED (5) HTN (hypertension) Code(s): I10 - ESSENTIAL (PRIMARY) HYPERTENSION (6) HLD (hyperlipidemia) Code(s): E78.5 - HYPERLIPIDEMIA, UNSPECIFIED Assessment/Plan (1) Incisional hernia, incarcerated Assessment/Plan: -s/p repair -surgery following Code(s): K43.0 - INCISIONAL HERNIA WITH OBSTRUCTION, WITHOUT GANGRENE (2) Small bowel obstruction Assessment/Plan: -npo -ngt in place Code(s): K56.609 - UNSP INTESTNL OBST, UNSP TO PARTIAL VERSUS COMPLETE OBST (3) Hypokalemia Assessment/Plan: -replace in fluid Code(s): E87.6 - HYPOKALEMIA (4) Hypothyroid Assessment/Plan: -continue IV synthroid Code(s): E03.9 - HYPOTHYROIDISM, UNSPECIFIED (5) HTN (hypertension) Assessment/Plan: -controlled Code(s): I10 - ESSENTIAL (PRIMARY) HYPERTENSION (6) HLD (hyperlipidemia) Assessment/Plan: -restart statin on discharge Code(s): E78.5 - HYPERLIPIDEMIA, UNSPECIFIED
[2019-03-03] MEDS: D5-1/2NS+40 MEQ KCL - 40 MEQ/1,000 ML INFUS.BAG IV SCH (17:11)
--- NOTE | 2019-03-03 17:32 | PATH ---
Surgical Pathology Report Patient Name: DIRK PHILLIP Med. Rec. #: [id number] /Age/Gender: 1935 (Age: 83) / F Account: [id number] Location: [address] [place] [address] Taken: 03/02/2019 Received: 03/02/2019 Reported: 03/03/2019 Physicians: Domingo Lomeli M.D. Specimen(s) Received INCISIONAL HERNIA SAC Clinical History Hernia Final Diagnosis INCISIONAL HERNIA SAC, UMBILICAL HERNIA REPAIR: FIBROMEMBRANOUS TISSUE CONSISTENT WITH HERNIA SAC. Electronically Signed Rosmery Velazquez M.D. Gross Description Received in formalin, labeled "hernia sac" are 2 branch, irregular portions of soft tissue measuring 3.5 x 2.0 x 0.5 and 2.5 x 1.7 x 0.2 cm, respectively. Overnight Caregiver sections are submitted in one cassette. JH/03/02/2019 candice/03/02/2019
--- NOTE | 2019-03-03 18:27 | PN ---
Progress Note, Physician Chief Complaint: s/p incisional hernia repair, post op day one under general anesthesia - Current Medication List Current Medications: Active Medications Acetaminophen (Ofirmev Injection -) 1,000 mg IVPB ONCE PRN PRN Reason: MODERATE PAIN Last Admin: 03/02/19 22:45 Dose: 1,000 mg Fentanyl (Sublimaze Injection -) 50 mcg IVPUSH [id number] PRN PRN Reason: PAIN-PACU ORDER X 4 DOSES ONLY Dextrose/Sodium Chloride (D5-1/2ns+40 Meq Kcl -) 40 meq in 1,000 mls @ 75 mls/ hr IV ASDIR [facility] Last Admin: 03/03/19 17:11 Dose: 75 mls/hr Levothyroxine Sodium (Synthroid Injection -) 37.5 mcg IVPUSH DAILY [facility] Last Admin: 03/03/19 10:30 Dose: 37.5 mcg - Objective Vital Signs: Vital Signs Temperature 99.0 F 03/03/19 10:00 Pulse Rate 71 03/03/19 10:00 Respiratory Rate 20 03/03/19 10:00 Blood Pressure 143/56 L 03/03/19 10:00 O2 Sat by Pulse Oximetry (%) 93 L 03/03/19 09:00 Constitutional: Yes: Well Nourished, No Distress Cardiovascular: Yes: WNL Respiratory: Yes: WNL Gastrointestinal: Yes: Distention (ng tube in place) Labs: CBC, BMP 03/03/19 07:00 03/03/19 07:00 INR, PTT INR 0.93 (0.83-1.09) 03/01/19 11:00 Assessment/Plan No adverse effects of anesthetic, dept of anesthesia will sign off care at this time
[2019-03-03] MEDS: LACTATED RINGERS SOLUTION 1,000 ML IV SCH (19:45)
[2019-03-04] MEDS: D5-1/2NS+40 MEQ KCL - 40 MEQ/1,000 ML INFUS.BAG IV SCH ×2 (06:10→17:30)
[2019-03-04 07:23] LABS: BASO % 0.1 % (0-2.0); EOS % 1.3 % (0-4.5); HEMATOCRIT 27.7 % (32.4-45.2); HEMOGLOBIN 9.4 GM/dL (10.7-15.3); LYMPH % 7.9 % (8-40); MCH 33.9 pg (25.7-33.7); MEAN CELL VOLUME 99.7 fl (80-96); MEAN PLT VOLUME 8.5 fl (7.5-11.1); NEUT % 78.7 % (42.8-82.8); PLATELET COUNT 184 K/MM3 (134-434); RBC 2.78 M/mm3 (3.60-5.2); RDW 12.4 % (11.6-15.6); WHITE BLOOD COUNT 6.8 K/mm3 (4.0-10.0)
[2019-03-04 07:33] LABS: CALCIUM 7.8 mg/dL (8.5-10.1); CREATININE 0.7 mg/dL (0.55-1.3); MAGNESIUM 1.8 mg/dL (1.8-2.4); PHOSPHOROUS 1.5 mg/dL (2.5-4.9); POTASSIUM 3.7 mmol/L (3.5-5.1)
[2019-03-04] MEDS ORDERED: PT OWN MED DRAWER 7, Y5N ONE ×2 (10:04→21:04)
[2019-03-04] MEDS: LEVOTHYROXINE SODIUM 100 MCG VIAL IVPUSH SCH (10:07)
[2019-03-04] MEDS ORDERED: POTASSIUM PHOSPHATE 16 MM in SODIUM CHLORIDE 250 ML IVPB ONE (14:49)
[2019-03-04] MEDS ORDERED: LEVOTHYROXINE NA 88 MCG TABLET (FP) PO SCH (16:30)
--- NOTE | 2019-03-04 16:33 | PN ---
Progress Note, Physician Chief Complaint: Ms Linares is without complaint. Denies cp, sob, n/v. Tolerating clears, +bm. - Current Medication List Current Medications: Active Medications Amlodipine Besylate (Norvasc -) 10 mg PO DAILY [facility] Aspirin (Asa -) 81 mg PO DAILY [facility] Atorvastatin Calcium (Lipitor -) 10 mg PO HS [facility] Brimonidine Tartrate (Alphagan 0.2% -) 1 drop OU BID ALANA Fentanyl (Sublimaze Injection -) 50 mcg IVPUSH [id number] PRN PRN Reason: PAIN-PACU ORDER X 4 DOSES ONLY Dextrose/Sodium Chloride (D5-1/2ns+40 Meq Kcl -) 40 meq in 1,000 mls @ 75 mls/ hr IV ASDIR ALANA Last Admin: 03/04/19 06:10 Dose: 75 mls/hr Potassium Phosphate 16 mm/ (Sodium Chloride) 255.3333 mls @ 62.5 mls/hr IVPB ONCE ONE Stop: 03/04/19 18:54 Latanoprost (Xalatan 0.005% Eye Drops -) 1 drop OU HS ALANA Levothyroxine Sodium (Synthroid -) 75 mcg PO ACBK ALANA Losartan Potassium (Cozaar -) 25 mg PO DAILY ALANA Timolol Maleate (Timoptic 0.5%) 1 drop OU BID ALNAA - Objective Vital Signs: Vital Signs Temperature 37.2 C 03/04/19 15:14 Pulse Rate 77 03/04/19 15:14 Respiratory Rate 20 03/04/19 08:46 Blood Pressure 153/67 03/04/19 15:14 O2 Sat by Pulse Oximetry (%) 94 L 03/04/19 09:00 Constitutional: Yes: Well Nourished, No Distress, Calm Cardiovascular: Yes: Regular Rate and Rhythm. No: Gallop, Murmur, Rub Respiratory: Yes: Regular, CTA Bilaterally. No: Rales, Rhonchi, Wheezes Gastrointestinal: Yes: Normal Bowel Sounds, Soft, Distention. No: Tenderness Extremities: Yes: WNL Edema: No Labs: CBC, BMP 03/04/19 06:30 03/04/19 06:30 INR, PTT INR 0.93 (0.83-1.09) 03/01/19 11:00 Problem List - Problems (1) Incisional hernia, incarcerated Code(s): K43.0 - INCISIONAL HERNIA WITH OBSTRUCTION, WITHOUT GANGRENE (2) Small bowel obstruction Code(s): K56.609 - UNSP INTESTNL OBST, UNSP TO PARTIAL VERSUS COMPLETE OBST (3) Hypokalemia Code(s): E87.6 - HYPOKALEMIA (4) Hypothyroid Code(s): E03.9 - HYPOTHYROIDISM, UNSPECIFIED (5) HTN (hypertension) Code(s): I10 - ESSENTIAL (PRIMARY) HYPERTENSION (6) HLD (hyperlipidemia) Code(s): E78.5 - HYPERLIPIDEMIA, UNSPECIFIED Assessment/Plan (1) Incisional hernia, incarcerated Assessment/Plan: -s/p repair -surgery following Code(s): K43.0 - INCISIONAL HERNIA WITH OBSTRUCTION, WITHOUT GANGRENE (2) Small bowel obstruction Assessment/Plan: -ngt removed -on clears -advance diet as tolerated Code(s): K56.609 - UNSP INTESTNL OBST, UNSP TO PARTIAL VERSUS COMPLETE OBST (3) Hypokalemia Assessment/Plan: -replace in fluid Code(s): E87.6 - HYPOKALEMIA (4) Hypothyroid Assessment/Plan: -change to oral synthroid Code(s): E03.9 - HYPOTHYROIDISM, UNSPECIFIED (5) HTN (hypertension) Assessment/Plan: -restart home regimen -hypertensive today Code(s): I10 - ESSENTIAL (PRIMARY) HYPERTENSION (6) HLD (hyperlipidemia) Assessment/Plan: -restart statin on discharge Code(s): E78.5 - HYPERLIPIDEMIA, UNSPECIFIED (7) Hypophosphatemia -replace with IV potassium phosphate -recheck in am
[2019-03-04] MEDS: ATORVASTATIN CA 10 MG TABLET (FP) PO SCH (21:06)
[2019-03-04] MEDS: BRIMONIDINE TARTRATE 0.2% OPHTHALMIC 5 ML BOTTLE OU SCH (21:07)
[2019-03-04] MEDS: TIMOLOL 0.5% OPHTHALMIC SOL 5 ML BOTTLE OU SCH (21:08)
[2019-03-04] MEDS: LATANOPROST 0.005% OPHTH SOLN 2.5ML BOTTLE OU SCH (21:08)
[2019-03-04] MEDS ORDERED: PATIENT'S OWN MEDICATION (NON-FORMULARY) (Brimonidine Tartrate/Timolol [Combigan 0.2%-0.5% OU SCH (22:00)
[2019-03-04] MEDS ORDERED: PATIENT'S OWN MEDICATION (NON-FORMULARY) (Travoprost [Travatan Z] 1 DROP) OU SCH (22:00)
[2019-03-05] MEDS: LEVOTHYROXINE NA 75 MCG TABLET (FP) PO SCH (06:21)
[2019-03-05] MEDS: D5-1/2NS+40 MEQ KCL - 40 MEQ/1,000 ML INFUS.BAG IV SCH (06:22)
[2019-03-05 07:13] LABS: BASO % 0.5 % (0-2.0); EOS % 3.7 % (0-4.5); HEMATOCRIT 26.4 % (32.4-45.2); HEMOGLOBIN 9.2 GM/dL (10.7-15.3); LYMPH % 10.8 % (8-40); MCH 34.6 pg (25.7-33.7); MCHC 34.7 g/dl (32.0-36.0); MEAN CELL VOLUME 99.4 fl (80-96); MEAN PLT VOLUME 8.8 fl (7.5-11.1); MONO % 11.1 % (3.8-10.2); NEUT % 73.9 % (42.8-82.8); PLATELET COUNT 183 K/MM3 (134-434); RBC 2.66 M/mm3 (3.60-5.2); RDW 12.2 % (11.6-15.6); WHITE BLOOD COUNT 5.3 K/mm3 (4.0-10.0)
[2019-03-05 07:35] LABS: CREATININE 0.6 mg/dL (0.55-1.3); MAGNESIUM 1.7 mg/dL (1.8-2.4); PHOSPHOROUS 2.4 mg/dL (2.5-4.9); POTASSIUM 3.7 mmol/L (3.5-5.1)
[2019-03-05] MEDS ORDERED: PT OWN MED DRAWER 7, Y5N ONE (09:50)
[2019-03-05] MEDS: ASPIRIN 81 MG CHEWABLE TABLETS PO SCH (09:54)
[2019-03-05] MEDS: LOSARTAN POTASSIUM 25 MG TABLET PO SCH (09:54)
[2019-03-05] MEDS: amLODIPine BESYLATE 10 MG TABLET (FP) PO SCH (09:54)
[2019-03-05] MEDS: BRIMONIDINE TARTRATE 0.2% OPHTHALMIC 5 ML BOTTLE OU SCH ×2 (09:56→21:23)
[2019-03-05] MEDS: TIMOLOL 0.5% OPHTHALMIC SOL 5 ML BOTTLE OU SCH ×2 (09:56→21:23)
[2019-03-05] MEDS ORDERED: PATIENT'S OWN MEDICATION (NON-FORMULARY) (Pravastatin Sodium [Pravastatin Sodium] 20 MG) PO SCH (10:00)
--- NOTE | 2019-03-05 10:24 | PN ---
Progress Note, Physician Chief Complaint: Ms Linares is without complaint. Denies cp, sob, n/v. Wants her diet to be advanced. - Current Medication List Current Medications: Active Medications Amlodipine Besylate (Norvasc -) 10 mg PO DAILY [facility] Last Admin: 03/05/19 09:54 Dose: 10 mg Aspirin (Asa -) 81 mg PO DAILY [facility] Last Admin: 03/05/19 09:54 Dose: 81 mg Atorvastatin Calcium (Lipitor -) 10 mg PO HS [facility] Last Admin: 03/04/19 21:06 Dose: 10 mg Brimonidine Tartrate (Alphagan 0.2% -) 1 drop OU BID [facility] Last Admin: 03/05/19 09:56 Dose: 1 drop Fentanyl (Sublimaze Injection -) 50 mcg IVPUSH [id number] PRN PRN Reason: PAIN-PACU ORDER X 4 DOSES ONLY Dextrose/Sodium Chloride (D5-1/2ns+40 Meq Kcl -) 40 meq in 1,000 mls @ 75 mls/ hr IV ASDIR [facility] Last Admin: 03/05/19 06:22 Dose: 75 mls/hr Latanoprost (Xalatan 0.005% Eye Drops -) 1 drop OU HS [facility] Last Admin: 03/04/19 21:08 Dose: 1 drop Levothyroxine Sodium (Synthroid -) 75 mcg PO ACBK [facility] Last Admin: 03/05/19 06:21 Dose: 75 mcg Losartan Potassium (Cozaar -) 25 mg PO DAILY [facility] Last Admin: 03/05/19 09:54 Dose: 25 mg Magnesium Oxide (Mag-Ox -) 800 mg PO ONCE ONE Stop: 03/05/19 10:31 Potassium Phos/Sodium Phos (Phos-Nak Packet -) 1 packet PO TID [facility] Timolol Maleate (Timoptic 0.5%) 1 drop OU BID [facility] Last Admin: 03/05/19 09:56 Dose: 1 drop - Objective Vital Signs: Vital Signs Temperature 37.0 C 03/04/19 21:00 Pulse Rate 84 03/04/19 21:00 Respiratory Rate 18 03/04/19 21:00 Blood Pressure 130/63 03/04/19 21:00 O2 Sat by Pulse Oximetry (%) 95 03/04/19 21:00 Constitutional: Yes: Well Nourished, No Distress, Calm Cardiovascular: Yes: Regular Rate and Rhythm. No: Gallop, Murmur, Rub Respiratory: Yes: Regular, CTA Bilaterally. No: Rales, Rhonchi, Wheezes Gastrointestinal: Yes: Normal Bowel Sounds, Soft, Distention. No: Tenderness Extremities: Yes: WNL Edema: No Labs: CBC, BMP 03/05/19 06:30 03/05/19 06:30 INR, PTT INR 0.93 (0.83-1.09) 03/01/19 11:00 Problem List - Problems (1) Incisional hernia, incarcerated Code(s): K43.0 - INCISIONAL HERNIA WITH OBSTRUCTION, WITHOUT GANGRENE (2) Small bowel obstruction Code(s): K56.609 - UNSP INTESTNL OBST, UNSP TO PARTIAL VERSUS COMPLETE OBST (3) Hypokalemia Code(s): E87.6 - HYPOKALEMIA (4) Hypothyroid Code(s): E03.9 - HYPOTHYROIDISM, UNSPECIFIED (5) HTN (hypertension) Code(s): I10 - ESSENTIAL (PRIMARY) HYPERTENSION (6) HLD (hyperlipidemia) Code(s): E78.5 - HYPERLIPIDEMIA, UNSPECIFIED Assessment/Plan (1) Incisional hernia, incarcerated Assessment/Plan: -s/p repair -case d/w Dr Lomeli Code(s): K43.0 - INCISIONAL HERNIA WITH OBSTRUCTION, WITHOUT GANGRENE (2) Small bowel obstruction Assessment/Plan: -advance to regular diet today -plan for discharge tomorrow Code(s): K56.609 - UNSP INTESTNL OBST, UNSP TO PARTIAL VERSUS COMPLETE OBST (3) Hypokalemia Assessment/Plan: -replaced -stop IVF Code(s): E87.6 - HYPOKALEMIA (4) Hypothyroid Assessment/Plan: -synthroid Code(s): E03.9 - HYPOTHYROIDISM, UNSPECIFIED (5) HTN (hypertension) Assessment/Plan: -continue home regimen Code(s): I10 - ESSENTIAL (PRIMARY) HYPERTENSION (6) HLD (hyperlipidemia) Assessment/Plan: -restart statin on discharge Code(s): E78.5 - HYPERLIPIDEMIA, UNSPECIFIED (7) Hypophosphatemia -replace with oral phosphorus -recheck in am
[2019-03-05] MEDS ORDERED: MAGNESIUM OXIDE 400 MG TABLET (FP) PO ONE (10:30)
[2019-03-05] MEDS: NAPH,MB-DB/K PH,MBDB POWDER PACKET PO SCH ×3 (10:55→21:23)
[2019-03-05] MEDS: LATANOPROST 0.005% OPHTH SOLN 2.5ML BOTTLE OU SCH (21:23)
[2019-03-05] MEDS: ATORVASTATIN CA 10 MG TABLET (FP) PO SCH (21:23)
[2019-03-06] MEDS: NAPH,MB-DB/K PH,MBDB POWDER PACKET PO SCH (06:22)
[2019-03-06] MEDS: LEVOTHYROXINE NA 75 MCG TABLET (FP) PO SCH (06:22)
[2019-03-06 07:02] LABS: BASO % 0.3 % (0-2.0); EOS % 5.5 % (0-4.5); HEMATOCRIT 29.6 % (32.4-45.2); HEMOGLOBIN 10.2 GM/dL (10.7-15.3); LYMPH % 14.2 % (8-40); MCH 34.3 pg (25.7-33.7); MCHC 34.6 g/dl (32.0-36.0); MEAN PLT VOLUME 8.6 fl (7.5-11.1); MONO % 10.8 % (3.8-10.2); NEUT % 69.2 % (42.8-82.8); PLATELET COUNT 236 K/MM3 (134-434); RBC 2.99 M/mm3 (3.60-5.2); WHITE BLOOD COUNT 5.8 K/mm3 (4.0-10.0)
[2019-03-06 07:28] LABS: CALCIUM 8.5 mg/dL (8.5-10.1); CREATININE 0.7 mg/dL (0.55-1.3); MAGNESIUM 1.8 mg/dL (1.8-2.4); PHOSPHOROUS 3.2 mg/dL (2.5-4.9); POTASSIUM 4.3 mmol/L (3.5-5.1)
[2019-03-06] MEDS ORDERED: PT OWN MED DRAWER 7, Y5N ONE (09:38)
[2019-03-06] MEDS: LOSARTAN POTASSIUM 25 MG TABLET PO SCH (09:43)
[2019-03-06] MEDS: amLODIPine BESYLATE 10 MG TABLET (FP) PO SCH (09:43)
[2019-03-06] MEDS: ASPIRIN 81 MG CHEWABLE TABLETS PO SCH (09:43)
[2019-03-06] MEDS: TIMOLOL 0.5% OPHTHALMIC SOL 5 ML BOTTLE OU SCH (09:44)
[2019-03-06] MEDS: BRIMONIDINE TARTRATE 0.2% OPHTHALMIC 5 ML BOTTLE OU SCH (09:44)
--- NOTE | 2019-03-06 11:10 | DS ---
Physical Examination Vital Signs: Vital Signs Temperature 36.9 C 03/06/19 06:25 Pulse Rate 78 03/06/19 06:25 Respiratory Rate 16 03/06/19 06:25 Blood Pressure 137/82 03/06/19 06:25 O2 Sat by Pulse Oximetry (%) 5 L 03/05/19 21:00 Constitutional: Yes: No Distress, Calm, Thin Cardiovascular: Yes: Regular Rate and Rhythm. No: Gallop, Murmur, Rub Respiratory: Yes: Regular, CTA Bilaterally. No: Rales, Rhonchi, Wheezes Gastrointestinal: Yes: Normal Bowel Sounds, Soft. No: Distention, Tenderness Extremities: Yes: WNL Edema: No Labs: CBC, BMP 03/06/19 06:00 03/06/19 06:00 Discharge Summary Reason For Visit: PERIUMBILICAL HERNIA, SMALL BOWEL OBSTRUCTION Current Active Problems HLD (hyperlipidemia) (Acute) HTN (hypertension) (Acute) Hypokalemia (Acute) Hypothyroid (Acute) Incisional hernia, incarcerated (Acute) Periumbilical hernia (Acute) Small bowel obstruction (Acute) Hospital Course: (1) Incisional hernia, incarcerated Code(s): K43.0 - INCISIONAL HERNIA WITH OBSTRUCTION, WITHOUT GANGRENE (2) Small bowel obstruction Code(s): K56.609 - UNSP INTESTNL OBST, UNSP TO PARTIAL VERSUS COMPLETE OBST (3) Hypokalemia Code(s): E87.6 - HYPOKALEMIA (4) Hypothyroid Code(s): E03.9 - HYPOTHYROIDISM, UNSPECIFIED (5) HTN (hypertension) Code(s): I10 - ESSENTIAL (PRIMARY) HYPERTENSION (6) HLD (hyperlipidemia) Code(s): E78.5 - HYPERLIPIDEMIA, UNSPECIFIED (7) Severe protein calorie malnutrition Ms Linares is a very pleasant 83 year old female who presented with SBO secondary to incarcerated ventral hernia. She was admitted to the hospital and seen by surgery. She underwent repair with mesh placement. She was monitored and her diet was advanced. She was also restarted on her home medications. She is currently tolerating a sold diet. She is safe for discharge home. 32 minutes spent in preparation of this discharge Condition: Good - Instructions Diet, Activity, Other Instructions: Postoperative instructions: You had a incisional hernia repair with mesh on 03/[address] Domingo Lomeli of [facility]. Activity: Resume your usual activities gradually, but no heavy exertion or lifting more than 10-15 pounds for 4-6 weeks. Remove dressings 48 hours after surgery, if they are not already off. You may shower daily starting then, just pat the incision areas dry. No bath or swimming until skin incisions have healed. Jenny should not need to be recovered with any dressings, unless you have been told otherwise. Eat lightly at first, but advance to your usual diet as tolerated. Pain: For pain, you may use and alternate Tylenol (acetaminophen) 1-2 pills and/ or ibuprofen 200 mg (1-3 pills) every 6 hours each as needed; this means that you can take one OR the other at 3-hour intervals. If you are prescribed a Tylenol/narcotic combination for severe pain, use it instead of plain Tylenol as needed and switch back when your pain starts decreasing. Do not take more than 4000 mg of acetaminophen in a day. Take medications as prescribed or indicated on the labeling. Follow-up: Call Dr. Lomeli' office at [phone] to make your postop appointment (Thursday in approximately 2 weeks after surgery as advised). Clinic is held in the [facility] on the first floor of [facility]. Call the office if you have: * increasing pain not responsive to pain medication * fever of 101F or higher * vomiting * unusual or increasing bleeding or drainage from wounds * increasing redness or swelling at wound sites * inability to urinate Also, see your primary medical doctor within 1-2 weeks. Referrals: Francisco Moore MD [Primary Care Provider] - Domingo Lomeli MD [Staff Physician] - Disposition: HOME - Home Medications Comprehensive Discharge Medication List: Ambulatory Orders Amlodipine Besylate 10 mg PO DAILY 10/11/17 Aspirin 81 mg PO DAILY 10/11/17 Brimonidine Tartrate/Timolol [Combigan 0.2%-0.5% Eye Drops] 1 drop OU BID Levothyroxine Sodium [Levo-T] 75 mcg PO DAILY 10/11/17 Losartan Potassium 25 mg PO DAILY 10/11/17 Pravastatin Sodium 20 mg PO DAILY 10/11/17 Travoprost [Travatan Z] 1 drop OU HS 10/11/17 Multivit-Min/Iron/Folic/Lutein [Centrum Silver Women Tablet] 1 each PO DAILY Gaastra-3 Fatty Acids/Fish Oil [Fish Oil 1,000 mg Capsule] 1 each PO DAILY
[2019-03-06 11:54] VITALS: BP 139/48; PULSE 79; TEMP 98.8
--- NOTE | 2019-03-10 13:51 | OP ---
DATE OF OPERATION: 03/02/2019 PREOPERATIVE DIAGNOSIS: Recurrent incisional hernia. POSTOPERATIVE DIAGNOSIS: Recurrent incisional hernia. PROCEDURE: Open repair of recurrent incisional hernia periumbilical with mesh. ATTENDING SURGEON: Domingo Lomeli MD MACHINE PECAN GATHERER: JAKE Raza ANESTHESIOLOGIST: Marian Negro MD ANESTHESIA TYPE: General with local. Local consisted of 0.5% Marcaine, a total of 10 mL given, in an area-block fashion. ESTIMATED BLOOD LOSS: 5 mL. INTRAVENOUS FLUID: Administered 400 mL. SPECIMEN: Hernia sac. BRIEF FINDINGS: Patient had a recurrently symptomatic, supraumbilical incisional hernia which was incarcerated. No strangulation of the bowel. The bowel content was reduced into the abdomen and underlay mesh repair was completed. IMPLANT: Bard 3-inch round mesh. PROCEDURE: The patient was brought to the operating room and placed in supine position on the operating table. Lower extremities had SCDs placed for compression. The patient general anesthesia, endotracheally intubated. She received intravenous antibiotics in the form of Ancef 2 g prior to the start of surgery. After a formal timeout was completed, identifying the operative side and procedure, as well as that the mesh was present, with all parties in agreement, began with a linear, midline, supraumbilical incision directly over the point of maximum tenderness which was marked preoperatively. This incision was incised with a 15-blade scalpel, deepened and widened through subcutaneous tissue. Care was taken to dissect down into the hernia sac and then open the hernia sac. The contents of the hernia appeared to be bowel; it was reduced. The hernia defect itself, after the hernia sac was debrided down to fascia using Bovie cautery, was noted to be approximately 2 cm in diameter. We selected a 3-inch mesh which would allow for 2 cm of overlap with the midline defect repaired. Three [id number] 0 Prolene sutures were used to approximate the hernia defect and an underlay round Bard mesh was then installed. The Bard mesh was tacked to the fascia using 0 Prolene in interrupted fashion, tacking the edges of the mesh to the repair, and allowing fixation in the four cardinal positions, north, south, east, and west for the mesh, to prevent rotation. After completion, the area was irrigated. The mesh was then debrided the wound. The midline was then closed using a 0 Vicryl [id number] stitch. The deep subcutaneous tissue was approximated with 2-0 Vicryl to ablate the space where the hernia was present. The hernia sac was passed off for pathologic diagnosis; at which point, I began then a layered closure of the skin. Deep dermal sutures were placed, 3-0 Vicryl at the deep dermis, and then a running subcuticular 4-0 Vicryl with skin cleaned. Steri-Strips were placed and a sterile dressing. The patient was stable throughout. She was extubated in the operating room and returned to recovery in stable condition. Prior to closure, the abdomen counts were correct. MD YONATAN Almeida/[id number]
== END 2019-03-06 14:38 | disposition home or self-care (01) | DRG 353 ==
LOC: JER 09:14 → SUPCPDRO 09:14 → JERBED 16:09 → J6S 19:28
PROVIDERS: ADMIT Hospitalist; ATTEND Internal Medicine
PROC: 0WUF0JZ Supplement Abdominal Wall with Synthetic Substitute, Open Approach (ICD-10-PCS; principal; 2019-03-02 09:30)
DX: K43.2 Incisional hernia without obstruction or gangrene (principal); E43 Unspecified severe protein-calorie malnutrition; K56.609 Unspecified intestinal obstruction, unspecified as to partial versus complete obstruction; E87.1 Hypo-osmolality and hyponatremia; Z68.1 Body mass index [BMI] 19.9 or less, adult; I10 Essential (primary) hypertension; E83.39 Other disorders of phosphorus metabolism; E87.6 Hypokalemia; E78.5 Hyperlipidemia, unspecified; E03.9 Hypothyroidism, unspecified; R55 Syncope and collapse
CPT/HCPCS: 36415; 71045-TC-FY; 74019-TC-FY; 74177-TC; 80048; 80053; 81003; 83605; 83735; 84100; 84484; 85025; 85610; 85730; 88302-TC; 93005; 93010; 94760; 99283-25; J0131

== ENCOUNTER 2019-10-17 08:20 | Emergency (ER) | payer OTHER, BC ==
[2019-10-17 08:27] VITALS: BP 135/47; PULSE 85; TEMP 98.2; BMI 21.4
--- NOTE | 2019-10-17 09:33 | PDOC ---
History of Present Illness - General Chief Complaint: Chronic pain Stated Complaint: RT. LEG PAIN Time Seen by Provider: 10/17/19 08:48 History Source: Patient Exam Limitations: No Limitations - History of Present Illness Initial Comments: 10/17/19 09:06 83-year-old female presents to ED with complaints of right knee pain along with right leg swelling for the past 2 months. Patient states used a heating pad with a topical lidocaine patch and when she took it off it seemed to irritate her skin. Patient states also did bump her knee approximately 2 months ago while walking in her home but did not follow-up with her physician Dr. Moore. Patient states is able to move her knee and ambulate but with discomfort. Is this a multiple visit Asthma Patient?: No Timing/Duration: other Severity: mild Associated Symptoms: reports: other Past History - Travel Traveled outside of the country in the last 30 days: No Close contact w/someone who was outside of country & ill: No - Past Medical History Allergies/Adverse Reactions: Allergies Allergy/AdvReac Type Severity Reaction Status Date / Time No Known Allergies Allergy Verified 10/17/19 08:28 Home Medications: Ambulatory Orders Amlodipine Besylate 10 mg PO DAILY 10/11/17 Aspirin 81 mg PO DAILY 10/11/17 Brimonidine Tartrate/Timolol [Combigan 0.2%-0.5% Eye Drops] 1 drop OU BID Levothyroxine Sodium [Levo-T] 75 mcg PO DAILY 10/11/17 Losartan Potassium 25 mg PO DAILY 10/11/17 Pravastatin Sodium 20 mg PO DAILY 10/11/17 Travoprost [Travatan Z] 1 drop OU HS 10/11/17 Multivit-Min/Iron/Folic/Lutein [Centrum Silver Women Tablet] 1 each PO DAILY Sebastian-3 Fatty Acids/Fish Oil [Fish Oil 1,000 mg Capsule] 1 each PO DAILY Ibuprofen [Motrin -] 600 mg PO TID PRN #21 tablet 10/17/19 COPD: No HTN: Yes Hypercholesterolemia: Yes - Psycho Social/Smoking Cessation Hx Smoking History: Never smoked Hx Alcohol Use: No Drug/Substance Use Hx: No Substance Use Type: None Hx Substance Use Treatment: No Patient Lives Alone: Yes Lives with/in: lives alone Review of Systems - Review of Systems Able to Perform ROS?: Yes Constitutional: No: Symptoms Reported HEENTM: No: Symptoms Reported Respiratory: No: Symptoms reported Cardiac (ROS): No: Symptoms Reported ABD/GI: No: Symptoms Reported : No: Symptoms Reported Musculoskeletal: Yes: Joint Pain, Joint Swelling Integumentary: Yes: Symptoms Reported, Rash Neurological: No: Symptoms reported Endocrine: No: Symptoms Reported Hematologic/Lymphatic: No: Symptoms Reported *Physical Exam - Vital Signs Last Vital Signs Temp Pulse Resp BP Pulse Ox 98.2 F 85 16 135/47 L 100 10/17/19 08:23 10/17/19 08:23 10/17/19 08:23 10/17/19 08:23 10/17/19 08:23 - Physical Exam General Appearance: Yes: Nourished, Appropriately Dressed. No: Apparent Distress HEENT: positive: EOMI Neck: positive: Supple Respiratory/Chest: positive: Lungs Clear, Normal Breath Sounds. negative: Respiratory Distress, Accessory Muscle Use Cardiovascular: positive: Regular Rhythm, Regular Rate. negative: Murmur Extremity: positive: Normal Inspection (Mild edema surrounding the right patella and 1+ pitting edema distal of right patella), Normal Range of Motion, Tender (To lateral aspect of right patella with mild edema without ecchymosis deformity but noted crepitus with movement) Integumentary: positive: Petechiae (To anterior aspect of right patella) ED Treatment Course - RADIOLOGY Radiology Studies Ordered: Category Date Time Status KNEE 3 POS-RIGHT [RAD] Stat Radiology 10/17/19 08:49 Ordered DUPLEX VASCUL US-1 LEG [US] Stat Ultrasound 10/17/19 08:49 Ordered Medical Decision Making - Medical Decision Making 10/17/19 09:05 Chief complaint: Right knee pain for the past 2 months intermittently worse in the morning hours. Patient also complained of mild swelling to surrounding area for the past 2 months patient states put a Lidoderm patch to right knee approximately 5 days ago when she removed it she noticed a rash to the area yesterday and so decided come in. Exam: Patient with mild generalized petechiae over the anterior aspect of right patella. No no ecchymosis but noted mild edema to surrounding area with mild tenderness to the lateral aspect of right patella. Plan: Patient ordered for ultrasound and knee x-ray. Patient offered pain medicine but refused at this time. 10/17/19 10:53 Knee x-ray negative for acute pathology. Ultrasound negative for DVT. Noted at 2.9 x 1.5 x 3 cm Newton's cyst within the popliteal fossa there is also additional fluid around the knee joint. Patient will be given referral to orthopedist Discharge - Discharge Information Problems reviewed: Yes Clinical Impression/Diagnosis: Synovial cyst of popliteal space [Newton], right knee Condition: Good Disposition: HOME - Follow up/Referral Referrals: Francisco Moore MD [Primary Care Provider] - Luther Resendez DO [Staff Physician] - - Patient Discharge Instructions Patient Printed Discharge Instructions: DI for Newton's Cyst Additional Instructions: Keep it cold. Apply a cold pack to the affected area. It'll help keep the swelling down. Use Shane wrap during the day but remove at night Relieve pain. For pain (and to reduce inflammation), take an [id number] medication like ibuprofen Which I prescribed to you and sent to pharmacy Rest your leg. Keep it raised above your heart level when possible. This will keep down swelling. - Post Discharge Activity
== END 2019-10-17 11:38 | disposition home or self-care (01) ==
LOC: JER 08:20
DX: M71.21 Synovial cyst of popliteal space [Baker], right knee (principal); I10 Essential (primary) hypertension; E78.00 Pure hypercholesterolemia, unspecified
CPT/HCPCS: 73562-TC-RT-FY; 93971-TC; 99282-25

== ENCOUNTER 2020-09-09 08:13 | Emergency (ER) | payer OTHER, BC ==
[2020-09-09 08:19] VITALS: BP 130/50; PULSE 71; TEMP 97.9; BMI 22.6
[2020-09-09] MEDS ORDERED: ACETAMINOPHEN 325 MG TABLET (FP) PO ONE (09:05)
[2020-09-09 10:13] LABS: EPI CELLS 12 /uL (0-25.1); HYALINE CASTS 2 /uL (0-3.1); PH,URINE 5.5 (5.0-8.0); URINE APPEARANCE CLEAR; URINE BACTERIA 43 /uL (0-1359); URINE BILIRUBIN NEGATIVE (NEGATIVE); URINE COLOR YELLOW; URINE GLUCOSE (UA) NEGATIVE (NEGATIVE); URINE KETONE NEGATIVE (NEGATIVE); URINE LEUK ESTERASE 1+ (NEGATIVE); URINE NITRITE NEGATIVE (NEGATIVE); URINE PROTEIN NEGATIVE (NEGATIVE); URINE RBC 6 /uL (0-23.9); URINE UROBILINOGEN 0.2 mg/dL (0.2-1.0); URINE WBC 24 /uL (0-25.8)
[2020-09-09] MEDS ORDERED: CEPHALEXIN MONOHYDRATE 500 MG CAPSULE (UD) PO ONE (11:26)
== END 2020-09-09 11:55 | disposition home or self-care (01) ==
LOC: JER 08:13
DX: M25.551 Pain in right hip (principal); N39.0 Urinary tract infection, site not specified
CPT/HCPCS: 72170-TC-FY; 81003; 87086; 99284-25